=== PATIENT | female | born 1940 | race Caucasian/White ===

== ENCOUNTER 2017-06-24 08:40 | Emergency (ER) | payer MEDICARE, OTHER ==
[2017-06-24 09:16] VITALS: TEMP 98
[2017-06-24] MEDS ORDERED: Fluorescein 1 mg Ophthalmic Strip OD ONE (09:47)
[2017-06-24] MEDS ORDERED: Tetracaine 0.5% Ophth (OR ONLY) OD ONE (09:48)
--- NOTE | 2017-06-24 09:54 | C.PDOC ---
History Of Present Illness 76 year old female was brought to the ED by family with complaints of loss of vision to the left eye for > two weeks. As per family, patient was evaluated by her optho Dr. Alas who referred her to retinal specialist, Dr. Eubanks. Patient was evaluated by Dr. Eubanks on 06/10/2017 and given prescriptions for different eye drops (prednisolone, antibiotic, saline). Family states that she now has left eye pain for the last 10 days; they attempted to take patient to Dr. Alas but he is away on vacation, apparently without coverage from other ophtho. Patient denies headache, rashes, fever, trauma/injuries. Time Seen by Provider: 06/24/17 09:31 Chief Complaint (Nursing): Eye Problem History Per: Family History/Exam Limitations: no limitations Onset/Duration Of Symptoms: Persistent (2 weeks ) Current Symptoms Are (Timing): Still Present Injury To Eye?: No Severity: Mild Quality: "Pain" Wears Contact Lens?: No Associated Symptoms: Decreased Vision. denies: Swelling, FB Sensation, Itching Recent travel outside of the [place]: No Past Medical History Reviewed: Historical Data, Nursing Documentation, Vital Signs Vital Signs: Last Vital Signs Temp 98 F 06/24/17 09:04 Pulse 84 06/24/17 10:29 Resp 16 06/24/17 10:29 BP 162/85 H 06/24/17 10:29 Pulse Ox 100 06/24/17 11:37 - Medical History PMH: HTN Family History: States: No Known Family Hx - Social History Hx Alcohol Use: No Hx Substance Use: No - Immunization History Hx Tetanus Toxoid Vaccination: No Hx Influenza Vaccination: No Hx Pneumococcal Vaccination: No Review Of Systems Except As Marked, All Systems Reviewed And Found Negative. Constitutional: Negative for: Fever, Chills Eyes: Positive for: Pain, Vision Change. Negative for: Conjunctivae Inflammation, Eyelid Inflammation, Redness ENT: Negative for: Ear Pain Cardiovascular: Negative for: Chest Pain Respiratory: Negative for: Cough, Shortness of Breath Gastrointestinal: Negative for: Nausea, Vomiting Skin: Negative for: Rash Neurological: Negative for: Headache, Dizziness Physical Exam - Physical Exam Appears: Well, Non-toxic, No Acute Distress Skin: Warm, Dry, No Rash (no rash to the face ) Head: Atraumatic, Normacephalic Eye(s): bilateral: PERRL, EOMI (no pain with EMO movement), left: Other (mild scleral injection and clear discharge. Fluorescein stain under Wood's lamp - shows approx 1 cm corneal ulcer at 6-7 o'clock position. ) Ear(s): Bilateral: Normal Nose: Normal, No Discharge Oral Mucosa: Moist Throat: Normal, No Erythema, No Exudate Cardiovascular: Rhythm Regular Respiratory: Normal Breath Sounds, No Rales, No Rhonchi, No Wheezing Neurological/Psych: Oriented x3 ED Course And Treatment O2 Sat by Pulse Oximetry: 100 (room air ) Pulse Ox Interpretation: Normal Progress Note: Patient's ophtho records reviewed - Patient already seen by retinal specialist Dr. Eubanks on 06/10/17 - diagnoses given were: with loss of vision of unknown etiolgy, vitreous hemorrhage OS (chronic), cystoid maceular edema (OS), myopic degeneration B/L, staphyloma posticum B/L, hypertensive retinopathy B/L, posterior vitreous detachment B/L. Patient already on prednisolone, antibiotic and artificial tear eyedrops. -Physical exam in ER shows corneal ulcer - Rx for ofloxacin eye drops and naprosyn given. Patient given follow info for container washer ophtho Dr. Dos Santos, so she can follow up in 1- 2 days while her usual optho is away on vacation. She/family understand she should return to ER if symptoms worsen. Reevaluation Time: 10:15 Reassessment Condition: Improved Disposition Counseled Patient/Family Regarding: Studies Performed, Diagnosis, Need For Followup, Rx Given - Disposition Referrals: Harris Dos Santos MD [Staff Provider] - Jordan Alas MD [Staff Provider] - Disposition: HOME/ ROUTINE Disposition Time: 10:15 Condition: STABLE Additional Instructions: FOLLOW UP WITH DR HARRINGTON WHILE DR ALAS IS AWAY USE MEDICATION DIRECTED RETURN TO ER IF SYMPTOMS WORSEN Prescriptions: Naproxen [Naprosyn Tab] 375 mg PO BID PRN #20 tab PRN Reason: pain Ofloxacin Ophth 0.3% [Ocuflox Ophth 0.3%] 1 drop GT Q4 #1 bottle Instructions: Corneal Abrasion (ED) Forms: [employer] (Latvian) Print Language: DIVEHI - POA Present On Arrival: None - Clinical Impression Clinical Impression: Corneal abrasion, left, Corneal ulcer - Scribe Statement The provider has reviewed the documentation as recorded by the [place] All medical record entries made by the Greg were at my direction and personally dictated by me. I have reviewed the chart and agree that the record accurately reflects my personal performance of the history, physical exam, medical decision making, and the department course for this patient. I have also personally directed, reviewed, and agree with the discharge instructions and disposition.
[2017-06-24] MEDS ORDERED: Fluorescein 1 mg Ophthalmic Strip ONE (09:57)
[2017-06-24] MEDS ORDERED: Tetracaine 0.5% Ophth (OR ONLY) ONE (09:57)
[2017-06-24] MEDS ORDERED: Naproxen 550 mg Tab PO STA (10:04)
[2017-06-24] MEDS ORDERED: Naproxen 550 mg Tab PO ONE (10:10)
[2017-06-24 10:30] VITALS: BP 162/85; PULSE 84; RESP 16
[2017-06-24 11:22] VITALS: O2SAT 100
== END 2017-06-24 10:29 | disposition home or self-care (01) ==
LOC: C.ER 08:40
DX: S05.02XA Injury of conjunctiva and corneal abrasion without foreign body, left eye, initial encounter (principal); X58.XXXA Exposure to other specified factors, initial encounter; H16.002 Unspecified corneal ulcer, left eye